=== PATIENT | female | born 1990 | race African-American/Black ===

== ENCOUNTER 2016-08-09 12:37 | Emergency (ER) | payer SELFPAY ==
[~2016-08-09] VITALS: Ht 170.2 cm; Wt 51.7 kg
[2016-08-09 12:40] VITALS: BP 117/62
== END 2016-08-09 12:56 | disposition home or self-care (01) ==
LOC: ER 12:40
DX: J20.8 Acute bronchitis due to other specified organisms (principal); J11.1 Influenza due to unidentified influenza virus with other respiratory manifestations
CPT/HCPCS: 99283; A4606; Z7610

== ENCOUNTER 2016-08-20 17:14 | Emergency (ER) | payer SELFPAY ==
[~2016-08-20] VITALS: Ht 170.2 cm; Wt 51.7 kg
[2016-08-20 17:25] VITALS: BP 117/74
== END 2016-08-20 17:56 | disposition home or self-care (01) ==
LOC: ER 17:15
DX: J02.0 Streptococcal pharyngitis (principal)
CPT/HCPCS: 99283; A4606; Z7610